=== PATIENT | female | born 1985 | race Caucasian/White ===

== ENCOUNTER 2018-02-05 15:22 | Inpatient (IN) | END 2018-02-07 15:13 | disposition home or self-care (01) | DRG 775 ==

== ENCOUNTER 2019-05-27 20:31 | Emergency (ER) | payer MEDICAID ==
[~2019-05-27] VITALS: Ht 157.5 cm; Wt 102.7 kg
[~2019-05-27 20:31] MED LIST: IBUP-1542 PO; IBUP-1982 PO; PREN1TAB49 PO
[2019-05-27 20:38] VITALS: Ht 157.5 cm; Wt 102.7 kg
[2019-05-27] MEDS ORDERED: ONDANSETRON 4 MG INJ IV STA (21:04)
[2019-05-27] MEDS ORDERED: SOD CHLORIDE 0.9% 1,000 ML IV STA (21:04)
[2019-05-27] MEDS ORDERED: KETOROLAC 30 MG INJ IV STA (21:04)
[2019-05-27 22:49] VITALS: BP 142/67; PULSE 82; RESP 18
== END 2019-05-27 22:51 | disposition home or self-care (01) ==
LOC: E/R 20:31
DX: R51 Headache (principal)
CPT/HCPCS: 36415; 80053; 81001; 81025; 83690; 85025; 96374; 96375; J1885; J2405; J7030; Z7502

== ENCOUNTER 2019-05-28 12:40 | Emergency (ER) | payer MEDICAID ==
[~2019-05-28] VITALS: Ht 152.4 cm; Wt 103.2 kg
[2019-05-28 12:45] VITALS: Ht 152.4 cm; Wt 103.2 kg
[2019-05-28] MEDS ORDERED: ACET/BUTAL/CAFF TAB PO ONE (14:30)
[2019-05-28 17:23] VITALS: BP 129/66; PULSE 58; RESP 20
== END 2019-05-28 17:25 | disposition home or self-care (01) ==
LOC: FTE 12:40
DX: O90.89 Other complications of the puerperium, not elsewhere classified (principal); R51 Headache
CPT/HCPCS: 70450; Z7502; Z7610